=== PATIENT | female | born 2000 | race Caucasian/White ===

== ENCOUNTER 2019-05-25 15:53 | Emergency (ER) | payer OTHER ==
--- NOTE | 2019-05-25 16:06 | ED ---
Substance Abuse/Use - HPI Summary HPI Summary: 19 year old female presents to the ED with a chief complaint of ETOH intoxication starting earlier today per friend. THIS IS A LEVEL 5 CAVEAT DUE TO AMS. Patient has vomited. Per friend, patient was found lying on the ground outside a alliance party. - History Of Current Complaint Stated Complaint: ETOH PER FRIEND Time Seen by Provider: 05/25/19 15:56 Hx Obtained From: Patient, Family/Manager Winter - friend Hx From Patient Unobtainable Due To: Altered Mental Status ?: No Onset/Duration of Drug/ETOH Abuse: Hours Ingestion History: Type/Name Of Drug - ETOH Character: Stuporous Associated Signs And Symptoms: Vomiting - Allergies/Home Medications Allergies/Adverse Reactions: Allergies Allergy/AdvReac Type Severity Reaction Status Date / Time No Known Allergies Allergy Verified 05/25/19 15:56 Home Medications: Home Medications NK [No Home Medications Reported] 05/25/19 [History Confirmed 05/25/19] PMH/Surg Hx/FS Hx/Imm Hx Previously Healthy: Yes Infectious Disease History: No Infectious Disease History: Denies: Traveled Outside the [place] in Last 30 Days - Family History Known Family History: Positive: Unknown - Social History Occupation: Student Alcohol Use: Weekly Hx Substance Use: No Review of Systems Positive: Vomiting Positive: Slurred Speech All Other Systems Reviewed And Are Negative: Yes Physical Exam - Summary Physical Exam Summary: Appearance: The patient is well-nourished in no acute distress and in no acute pain. Opens eyes to voice. Speech is slurred. Skin: The skin is warm and dry, and skin color reflects adequate perfusion. HEENT: The head is normocephalic and atraumatic. The pupils are equal and reactive. The conjunctivae are clear and without drainage. Nares are patent and without drainage. Mouth reveals moist mucous membranes, and the throat is without erythema and exudate. The external ears are intact. The ear canals are patent and without drainage. The tympanic membranes are intact. Neck: The neck is supple with full range of motion and non-tender. There are no carotid bruits. There is no neck vein distension. Respiratory: Chest is non-tender. Lungs are clear to auscultation and breath sounds are symmetrical and equal. Cardiovascular: Heart is regular rate and rhythm. There is no murmur or rub auscultated. There is no peripheral edema and pulses are symmetrical and equal. Abdomen: The abdomen is soft and non-tender. There are normal bowel sounds heard in all four quadrants and there is no organomegaly palpated. Musculoskeletal: There is no back tenderness noted. Extremities are non-tender with full range of motion. There is good capillary refill. There is no peripheral edema or calf tenderness elicited. Neurological: Patient is alert and oriented to person, place and time. The patient has symmetrical motor strength in all four extremities. Cranial nerves are grossly intact. Deep tendon reflexes are symmetrical and equal in all four extremities. Psychiatric: The patient has an appropriate affect and does not exhibit any anxiety or depression. Triage Information Reviewed: Yes Vital Signs On Initial Exam: Initial Vitals Temp Pulse Resp BP Pulse Ox 97.5 F 116 14 130/73 98 05/25/19 15:54 05/25/19 15:54 05/25/19 15:54 05/25/19 15:54 05/25/19 15:54 Vital Signs Reviewed: Yes Procedures - Sedation Patient Received Moderate/Deep Sedation with Procedure: No Diagnostics - Vital Signs Vital Signs Temp Pulse Resp BP Pulse Ox 05/25/19 15:54 97.5 F 116 14 130/73 98 - Laboratory Result Diagrams: 05/25/19 16:13 05/25/19 16:13 Lab Statement: Any lab studies that have been ordered have been reviewed, and results considered in the medical decision making process. Course/Dx - Course Course Of Treatment: Ms. York was drinking with a friend lost track of her for short while. When she found the patient again the patient was poorly responsive. The patient wakes up and tells me limited information. Labs are obtained and her blood alcohol was only 100. However by the time her blood alcohol was back the patient was awake and behaving like her normal self. Her friend stayed with her the whole time. I think this is likely just alcohol but cannot rule out that she was given something else surreptitiously. She is stable at this point and going home with her friend. - Diagnoses Provider Diagnoses: Alcohol intoxication Discharge ED - Sign-Out/Discharge Documenting (check all that apply): Patient Departure - discharge home - Discharge Plan Condition: Stable Disposition: HOME Patient Education Materials: Alcohol Intoxication (ED) Additional Instructions: You were seen for alcohol intoxication. Please return to the Emergency Department if you experience new or worsened symptoms. - Billing Disposition and Condition Condition: STABLE Disposition: Home - Attestation Statements Document Initiated by Scribe: Yes Documenting Scribe: Cyrus Acosta Provider For Whom Deb is Documenting (Include Credential): Dr. Jason Joy Scribobdulia Attestation: Cyrus Alfred, scribed for Dr. Jason Joy on 05/25/19 at 2117. Scribe Documentation Reviewed: Yes Provider Attestation: The documentation as recorded by the scribe, Cyrus Acosta accurately reflects the service I personally performed and the decisions made by , Dr. Jason Joy Status of Scribe Document: Viewed
[2019-05-25 16:24] LABS: ABS Basophils 0.1 10^3/ul (0-0.2); ABS Lymphocytes 3.3 10^3/ul (1.0-4.8); ABS Monocytes 0.3 10^3/ul (0-0.8); ABS Neutrophils 4.2 10^3/ul (1.5-7.7); Eosinophil % 0.4 %; Hematocrit 37 % (35-47); Hemoglobin 12.3 g/dL (12.0-16.0); Lymphocyte % 41.3 %; Mean Corpuscular HGB Conc 34 g/dL (31-36); Mean Corpuscular Hemoglobin 28 pg (27-31); Mean Corpuscular Volume 84 fL (80-97); Mean Platelet Volume 9.1 fL (7.4-10.4); Nucleated Red Blood Cells % 0.1; Platelet Count 296 10^3/uL (150-450); Red Blood Count 4.39 10^6 /uL (3.70-4.87); Red Cell Distribution Width 14 % (10-15); White Blood Count 7.9 10^3/uL (3.5-10.8)
[2019-05-25 16:40] LABS: Albumin 4.3 g/dL (3.2-5.2); Albumin/Globulin Ratio 1.4 (1-3); BUN/Creatinine Ratio 9.1 (8-20); Calcium 9.1 mg/dL (8.6-10.3); EGFR African American 115.6 (>60); EGFR Non-African American 95.6 (>60); Potassium 2.8 mmol/L (3.5-5.0); Total Bilirubin 0.4 mg/dL (0.2-1.0); Total Protein 7.3 g/dL (6.4-8.9)
[2019-05-25] MEDS ORDERED: NS 0.9% 1000 ML** 1,000 ML IV ONE ×2 (17:11→17:23)
[2019-05-25 18:59] VITALS: BP 120/82
== END 2019-05-25 18:40 | disposition home or self-care (01) ==
LOC: ED 15:53
DX: F10.129 Alcohol abuse with intoxication, unspecified (principal); R47.81 Slurred speech; R11.10 Vomiting, unspecified
CPT/HCPCS: 36415; 80053; 80320; 83605; 84484; 85025; 99282; G0480